=== PATIENT | female | born 1950 | race Caucasian/White ===

== ENCOUNTER → 2016-11-18 | Outpatient (CLI) | payer OTHER ==
[~2016-11-18] VITALS: Ht 154.9 cm; Wt 96.6 kg
[~2016-11-18] MED LIST: ADVAIR 250-501 EACH IH; AMARYL2 MG PO; AMLODIPINE BESY10 MG PO; ANTIVERT25 MG PO; ASPIR 8181 M1 PO; ATIVAN1 MG PO; ATORVASTATIN CA40 MG PO; BENADRYL25 MG PO; COMBIVENT RESPIM4 GM IH; COZAAR50 MG PO; CYANOCOBALAM1000 MCG PO; DESIPRAMINE HCL10 MG PO; DICLOFENAC-MIS1 EAC3 PO; DIOVAN HCT 1601 EAC1 PO; DIOVAN HCT 3201 EAC1 PO; DUONEB 2.5-0.5 M3 ML IH; DUONEB3 ML IH; ERGOCALCIF50000 UNIT PO; FLOMAX0.4 MG PO; GLUCOPHAGE1000 MG PO; HYDROCODON-ACE1 EAC5 PO; KEFLEX500 MG PO; LIPITOR80 MG PO; LISINOPRIL5 MG PO; LOPRESSOR25 MG PO; LORTAB 5-325 M1 EACH PO; METHOCARBAMOL500 MG PO; METOPROLOL SUCC25 MG PO; MOBIC7.5 MG PO; MOTRIN800 MG PO; NEURONTIN100 MG PO; NEXIUM40 MG PO; NORVASC10 MG PO; PREVACID15 MG PO; SINGULAIR10 MG PO; SYMBICORT60 INHALAT IH; SYNTHROID; SYNTHROID125 MCG PO; SYNTHROID175 MCG PO; VENTOLIN HFA18 GM IH; VOLTAREN 1% GE100 GM TP; WELLBUTRIN SR150 MG PO; WELLBUTRIN XL150 MG PO; ZANTAC300 MG PO; ZOFRAN ODT4 MG PO; ZOFRAN4 MG PO; ZOLOFT25 MG PO; ZYRTEC10 M3 PO
[2016-11-18 13:03] LABS: POINT-OF-CARE METER ID UU14174212
[2016-11-18 14:56] LABS: POINT-OF-CARE METER ID UU13113819
== END | disposition home or self-care (01) ==
LOC: AMB 12:06
PROVIDERS: Internal Medicine Gastroenterology
DX: D12.2 Benign neoplasm of ascending colon (principal); K62.1 Rectal polyp; K57.30 Diverticulosis of large intestine without perforation or abscess without bleeding; K64.8 Other hemorrhoids; K62.89 Other specified diseases of anus and rectum; E66.01 Morbid (severe) obesity due to excess calories; Z68.41 Body mass index [BMI] 40.0-44.9, adult; D64.9 Anemia, unspecified; Z90.49 Acquired absence of other specified parts of digestive tract; I10 Essential (primary) hypertension; K21.9 Gastro-esophageal reflux disease without esophagitis; E11.9 Type 2 diabetes mellitus without complications; E78.00 Pure hypercholesterolemia, unspecified; J45.909 Unspecified asthma, uncomplicated; F32.9 Major depressive disorder, single episode, unspecified; F41.9 Anxiety disorder, unspecified; Z85.850 Personal history of malignant neoplasm of thyroid; Z87.891 Personal history of nicotine dependence; Z79.84 Long term (current) use of oral hypoglycemic drugs; Z82.3 Family history of stroke; Z80.3 Family history of malignant neoplasm of breast; Z80.7 Family history of other malignant neoplasms of lymphoid, hematopoietic and related tissues; Z82.49 Family history of ischemic heart disease and other diseases of the circulatory system; Z88.0 Allergy status to penicillin; Z88.5 Allergy status to narcotic agent; Z91.040 Latex allergy status; Z91.012 Allergy to eggs
CPT/HCPCS: 82948; 88305; 93005; J2250

== ENCOUNTER → 2016-12-17 | Outpatient (CLI) | payer OTHER ==
[~2016-12-17] VITALS: Ht 154.9 cm; Wt 96.8 kg
[2016-12-17 10:38] LABS: POINT-OF-CARE METER ID UU14107333
[2016-12-17 14:08] LABS: POINT-OF-CARE METER ID UU13113819
== END | disposition home or self-care (01) ==
LOC: AMB 08:45
PROVIDERS: Internal Medicine Gastroenterology
DX: K86.2 Cyst of pancreas (principal); I10 Essential (primary) hypertension; J45.909 Unspecified asthma, uncomplicated; E66.01 Morbid (severe) obesity due to excess calories; Z68.41 Body mass index [BMI] 40.0-44.9, adult; K21.9 Gastro-esophageal reflux disease without esophagitis; E11.9 Type 2 diabetes mellitus without complications; F41.9 Anxiety disorder, unspecified; Z79.84 Long term (current) use of oral hypoglycemic drugs; Z86.010 Personal history of colon polyps; Z88.0 Allergy status to penicillin
CPT/HCPCS: 82948; C1726; J0330; J0744; J1100; J2405; J3010

== ENCOUNTER → 2017-09-21 | Outpatient (CLI) | payer OTHER, MEDICARE | END | disposition home or self-care (01) | LOC: CDC 12:03 | DX: Z01.810 Encounter for preprocedural cardiovascular examination (principal); R94.31 Abnormal electrocardiogram [ECG] [EKG] | CPT/HCPCS: 93000 ==

== ENCOUNTER → 2017-10-04 | Outpatient (CLI) | payer OTHER ==
[~2017-10-04] VITALS: Ht 157.5 cm; Wt 86.2 kg
[~2017-10-04] MED LIST changes: +ATIVAN0.5 MG PO; +OMEPRAZOLE40 M1 PO; +ULTRAM50 MG PO
== END | disposition home or self-care (01) ==
LOC: AMB 06:50
PROVIDERS: Urology
PROC: 0TF4XZZ Fragmentation in Left Kidney Pelvis, External Approach (ICD-10-PCS; principal; 2017-10-04)
DX: N20.0 Calculus of kidney (principal)
CPT/HCPCS: 74019; 82948; J2405